=== PATIENT | male | born 1960 | race Caucasian/White ===

== ENCOUNTER 2018-12-16 11:21 | Outpatient (CLI) | payer BC ==
--- NOTE | 2018-12-16 12:26 | Ultrasound Report ---
Abdominal sonogram: History: Abnormal liver enzymes. Findings: Normal aorta. Fatty liver. No intrahepatic or extrahepatic duct dilatation. Common bile duct diameter 3.8 mm. Gallbladder wall thickness 2.1 mm. Echogenic area in the gallbladder probably a calculus and less likely a polyp. Measures 0.69 cm. Right kidney 9.2 x 4.2 x 5 cm. Cortical thickness is 1.3 cm. Left kidney 9.4 x 7.2 x 4.7 cm but cortical thickness is 1.4 cm. Spleen measures 9.6 cm. Pancreas is nonvisualized. Impression: Calculus/polyp gallbladder. Fatty liver.
== END 2018-12-16 11:22 | disposition home or self-care (01) ==
LOC: SPVWC 11:21
PROVIDERS: ATTEND Internal Medicine
DX: K76.0 Fatty (change of) liver, not elsewhere classified (principal)
CPT/HCPCS: 76700

== ENCOUNTER 2019-12-14 08:30 | Outpatient (CLI) | payer BC ==
--- NOTE | 2019-12-14 09:40 | Ultrasound Report ---
ABDOMINAL ULTRASOUND LIMITED (RIGHT UPPER QUADRANT) HISTORY: Elevated liver function tests COMPARISON: 12/16/2018 TECHNIQUE: Multiple real-time ultrasonographic grayscale images were obtained of the right upper abdo men. FINDINGS: Pancreas: Partially obscured by poor acoustic windows. Visualized portions without significant abnor mality. Liver: Mild diffuse increased echogenicity of the liver. No liver mass. The right lobe measures 13.4 cm in length. Gallbladder: Multiple nonshadowing echogenic foci which appear appeared to the wall. The largest justen ures 7 mm. The gallbladder wall measures 2.8 mm in thickness. Negative Woo sign. Common bile duct: 5 mm. Right kidney: No significant abnormality. No hydronephrosis. Kidney measures 9.8 cm. Additional findings: None. IMPRESSION: 1. Mild increased liver echogenicity, likely diffuse hepatic steatosis. No change since the last exam . 2. Multiple benign gallbladder polyps. No cholelithiasis. Signer Name: David Haynes MD Signed: 12/14/2019 9:35 AM Workstation Name: [id number]
== END 2019-12-14 08:31 | disposition home or self-care (01) ==
LOC: SPVWC 08:30
PROVIDERS: ATTEND Internal Medicine
DX: K82.4 Cholesterolosis of gallbladder (principal); R74.0 Nonspecific elevation of levels of transaminase and lactic acid dehydrogenase [LDH]
CPT/HCPCS: 76705

== ENCOUNTER 2021-12-25 08:37 | Outpatient (CLI) | payer BC ==
--- NOTE | 2021-12-25 10:49 | Ultrasound Report ---
ULTRASOUND ABDOMEN, LIMITED INDICATION / CLINICAL INFORMATION: R74.01 ELEVATED LIVER ENZYMES. COMPARISON: Ultrasound dated 12/14/2019 FINDINGS: PANCREAS: Visualized portions appear normal. LIVER: Liver measures 14.0 cm and is mildly echogenic. The main portal vein is patent. GALLBLADDER: Shadowing gallstones without sonographic evidence of acute cholecystitis. There are smal l mural echogenic foci which could represent adherent sludge versus polyps. BILE DUCTS: No significant abnormality. Common bile duct measures 2 mm. FREE FLUID: None. ADDITIONAL FINDINGS: None. IMPRESSION: 1. Hepatic steatosis. 2. Gallbladder stones without sonographic evidence of cholecystitis. Additional mural echogenic foci could represent adherent sludge versus polyps. Recommend attention on follow-up. Signer Name: Rad Lou MD Signed: 12/25/2021 10:44 AM Workstation Name: [id number]: turn off the lights1
== END 2021-12-25 08:38 | disposition home or self-care (01) ==
LOC: US 08:37
PROVIDERS: ATTEND Internal Medicine
DX: K76.0 Fatty (change of) liver, not elsewhere classified (principal); K80.20 Calculus of gallbladder without cholecystitis without obstruction; R74.01 Elevation of levels of liver transaminase levels
CPT/HCPCS: 76705